=== PATIENT | female | born 1970 | race Caucasian/White ===

== ENCOUNTER 2017-06-10 08:03 | Day surgery (SDC) | payer OTHER ==
[~2017-06-10] VITALS: Ht 160 cm; Wt 66.8 kg
[2017-06-10 08:50] VITALS: Ht 160 cm; Wt 66.8 kg
[2017-06-10] MEDS ORDERED: famotidine PO (09:09)
[2017-06-10] MEDS ORDERED: fluticasone (09:09)
[2017-06-10] MEDS ORDERED: plaquenil PO (09:09)
[2017-06-10] MEDS ORDERED: [UNRECOGNIZED DRUG - OTHER] PO (09:09)
[2017-06-10] MEDS ORDERED: ranitidine PO (09:09)
[2017-06-10] MEDS ORDERED: loratadine PO (09:09)
[2017-06-10] MEDS ORDERED: levothyroxine PO (09:09)
[2017-06-10] MEDS ORDERED: trazodone PO (09:09)
[2017-06-10] MEDS ORDERED: enbrel INJ (09:09)
[2017-06-10] MEDS ORDERED: folic acid PO (09:09)
[2017-06-10] MEDS ORDERED: LIDOCAINE 4% SOLUTION 50 ML BTL ONE (09:09)
[2017-06-10] MEDS ORDERED: naproxen PO (09:09)
[2017-06-10] MEDS ORDERED: methotrexate PO (09:09)
[2017-06-10] MEDS ORDERED: simvastatin PO (09:09)
[2017-06-10 09:11] VITALS: BP 149/87; PULSE 81; RESP 20
[2017-06-10] MEDS ORDERED: FENTAnyl 50 MCG/ML VIAL ONE (09:45)
[2017-06-10] MEDS ORDERED: MIDAZOLAM 1 MG/ML 2 ML INJ ONE ×2 (09:46)
[2017-06-10 10:25] VITALS: BP 132/87; PULSE 67; RESP 12
--- NOTE | 2017-06-18 09:14 | OPR ---
DATE OF OPERATION: 06/10/2017 OPERATIVE PROCEDURE: Esophagogastroduodenoscopy. PREOPERATIVE DIAGNOSIS: Patient presenting with a history of chronic epigastric pain, unresponsive to routine famotidine and ranitidine. Rule out peptic ulcer disease or esophagitis. POSTOPERATIVE DIAGNOSES: 1. Mild diffuse gastritis. 2. Gastric fundal polyps. DESCRIPTION OF PROCEDURE: After the informed written consent was obtained, the patient was asked to lay on the left lateral side. Versed 3 mg and 50 mcg of fentanyl were given as intravenous anesthesia. When the patient became somnolent, Olympus video upper endoscope was introduced into the oropharynx and then into the esophagus. The esophagus appeared normal except some tortuosity. The scope at this time was advanced into the stomach. The entire stomach showed diffuse erythema of milder degree, indicating diffuse gastritis. Multiple gastric fundal polyps were noted. They were small in size, 3-4 mm in diameter. At least four to five polyps were noted. The duodenum appeared normal up to the end of the third portion. However, duodenal biopsies were obtained to rule out celiac sprue. At this time, scope was withdrawn. Biopsy was obtained from the antrum and the lesser curvature to rule out H. pylori infection. Multiple biopsies were obtained from the multiple polyps in the fundus to rule out neoplastic process. The scope at this time was withdrawn. The procedure was terminated. PLAN: Recommend discontinuing famotidine and ranitidine. Try omeprazole 40 mg daily for one month. Meanwhile, wait for the pathology report. Dictated By: Tito Wilder MD /[email or web address]/joão /Document#: [id number] ; Allyson Bennett
== END 2017-06-10 15:44 | disposition home or self-care (01) ==
LOC: GIL 08:03
PROVIDERS: ATTEND Internal Medicine Gastroenterology
DX: K21.9 Gastro-esophageal reflux disease without esophagitis (principal); K31.7 Polyp of stomach and duodenum; K29.30 Chronic superficial gastritis without bleeding; M06.9 Rheumatoid arthritis, unspecified
CPT/HCPCS: 43239; 84703; 88305; 88312; J2250; J3010; Z7610